=== PATIENT | female | born 1935 | race Caucasian/White ===

== ENCOUNTER → 2019-08-04 | Outpatient (CLI) | payer MEDICARE ==
[~2019-08-04] MED LIST: ARIMIDEX1 MG PO; ASACOL; AVAPRO300 MG PO; BIOTIN1000 MCG PO; CALCIUM GLUCONATE PO; CARVEDILOL25 MG PO; CELEXA 10 MG TA10 M1 PO; COLAZAL750 MG PO; FEMARA2.5 MG; FEMARA2.5 MG PO; FISH OIL; FLAGYL500 MG; HYDRALAZINE 2525 MG PO; KADCYLA IV; KEFLEX500 MG PO; LIALDA1.2 GM PO; LOMOTIL TABLET1 EACH PO; MONTELUKAST SOD10 MG PO; MOVE FREE; NEURONTIN300 MG PO; NORCO 5-325 TA1 EAC1 PO; NORVASC 2.5 MG2.5 M1 PO; PHENERGAN 25 MG25 M1 PO; PREDNISOLONE ACE5 ML INTRAOCULR; PRESERVISION A1 EAC2 PO; PROBIOTIC & AC1 EACH PO; SPIRONOLACTONE25 MG PO; SUPER B COMPLEX; TRAMADOL 50 MG50 MG PO; VITAMIN B-121000 MC2 SUBLING; VITAMIN D1000 UNI1 PO; VITAMINS PO; VOLTAREN GEL 1100 G2 TOP; XANAX 0.25 MG0.25 MG PO; [UNRECOGNIZED DRUG - OTHER]; [UNRECOGNIZED DRUG - OTHER]
== END ==
LOC: M.PC 09:30
DX: M79.602 Pain in left arm (principal); G62.9 Polyneuropathy, unspecified

== ENCOUNTER → 2019-08-05 | Outpatient (CLI) | payer MEDICARE | LOC: M.MRI 16:01 | DX: M47.22 Other spondylosis with radiculopathy, cervical region (principal); M48.02 Spinal stenosis, cervical region ==

== ENCOUNTER → 2019-08-09 | Outpatient (CLI) | payer MEDICARE | END | disposition home or self-care (01) | LOC: M.PC 01:20 | DX: M54.2 Cervicalgia (principal); M54.12 Radiculopathy, cervical region; M79.602 Pain in left arm; G90.512 Complex regional pain syndrome I of left upper limb; I10 Essential (primary) hypertension; G62.9 Polyneuropathy, unspecified; Z98.890 Other specified postprocedural states; Z79.899 Other long term (current) drug therapy; Z90.710 Acquired absence of both cervix and uterus; Z88.8 Allergy status to other drugs, medicaments and biological substances; Z85.3 Personal history of malignant neoplasm of breast ==

== ENCOUNTER → 2019-08-23 | Outpatient (CLI) | payer MEDICARE ==
[~2019-08-23] MED LIST changes: +COMPAZINE10 M2 PO; +DOLOPHINE HCL5 MG PO; +HYDRALAZINE 5050 MG PO; +MELATONIN5 M4 PO; +METHADONE10 MG/1 M2 PO; +MIRALAX119 GM PO; +TYLENOL EXTRA500 MG PO
== END ==
LOC: M.PC 03:01
DX: C79.81 Secondary malignant neoplasm of breast (principal); G89.4 Chronic pain syndrome; G62.9 Polyneuropathy, unspecified